=== PATIENT | male | born 1955 | race Caucasian/White ===

== ENCOUNTER 2017-04-15 11:55 | Outpatient (CLI) | payer MEDICAID ==
--- NOTE | 2017-04-16 08:41 | XRAY Report ---
BILATERAL HIPS AND PELVIS: 04/15/2017 CLINICAL INDICATION: Bursitis. Frontal view of the hips and pelvis, and bilateral frog-leg lateral views of the hips demonstrate mil d bilateral hip osteoarthritis. There is no evidence of acute fracture or dislocation. IMPRESSION: MILD BILATERAL HIP OSTEOARTHRITIS. JOB #: [id number] EXT JOB #:[id number]
== END 2017-04-15 11:56 | disposition home or self-care (01) ==
LOC: DI.N 11:55
PROVIDERS: ATTEND Physician Assistant
DX: M16.0 Bilateral primary osteoarthritis of hip (principal)
CPT/HCPCS: 73521

== ENCOUNTER 2018-01-13 10:10 | Outpatient (CLI) | payer MEDICAID ==
--- NOTE | 2018-01-13 19:46 | XRAY Report ---
RIGHT HIP AND PELVIS: 01/13/2018 CLINICAL INDICATION: Chronic pain. FINDINGS: Frontal view of the hips and pelvis and frogleg lateral view of the right hip demonstrates moderate right hip osteoarthritis. There is no evidence of interval fracture from 04/15/2017. No foreign body is seen in the soft tissues. IMPRESSION: STABLE RIGHT HIP OSTEOARTHRITIS. TD: 01/13/2018 19:45
== END 2018-01-13 10:11 | disposition home or self-care (01) ==
LOC: DI 10:10
PROVIDERS: ATTEND Physician Assistant Medical
DX: M25.551 Pain in right hip (principal); M15.9 Polyosteoarthritis, unspecified